=== PATIENT | male | born 1970 | race Caucasian/White ===

== ENCOUNTER 2021-10-14 15:15 | Emergency (ER) | payer OTHER, SELFPAY ==
[2021-10-14 15:15] VITALS: BP 143/102; PULSE 98; RESP 20; TEMP 36.9; O2SAT 97; BMI 28.1
--- NOTE | 2021-10-14 15:34 | EKG12_ITS ---
Test Reason : SOB Blood Pressure : / mmHG Vent. Rate : 078 BPM Atrial Rate : 078 BPM P-R Int : 116 ms QRS Dur : 096 ms QT Int : 390 ms P-R-T Axes : 082 071 060 degrees QTc Int : 444 ms Normal sinus rhythm Nonspecific ST and T wave abnormality Abnormal ECG Confirmed by JOSE ELIAS SANTIAGO, SHAMIKA ([id number]), editor dictionary OZZIE MARTINEZ ([id number]) on 10/16/2021 9:11:25 AM Referred By: DALE Confirmed By:SHAMIKA MOCTEZUMA MD
--- NOTE | 2021-10-14 15:35 | ED.VIS.DYS ---
HPI History of Present Illness Chief Complaint: Shortness of Breath Narrative Narrative: 51-year-old male presenting with dyspnea. He states that he believes he had carbon monoxide poisoning. 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 He states his eyes burn when he is in it. He states it takes a while after he is in the truck to clear his head and to be able to breathe again. He has not been in the truck since yesterday but is still feeling like he is short of breath and his lungs are burning. He is describing chest pain that feels like someone standing on his chest. He states that it sometimes hard to breathe when his episodes happen. He was given an albuterol inhaler which did seem to help open him up a little bit. He is having his check truck for carbon monoxide levels however he states it will take about a week for this to get done because all of the power is out. Patient states that he does not have any cardiac history but also admits to not going to a physician on a regular basis. He states he smokes occasionally but not a lot. He has not had fever or chills. PFSH PFSH Medical History Smoker Home Medications albuterol sulfate 90 mcg/actuation aerosol inhaler (Ventolin HFA) 1 - 2 puff inhalation Q4H PRN PRN Wheezing #6.7 grams 10/14/21 [Rx Last Taken Unknown] Allergy/AdvReac Type Severity Reaction Status Date / Time No Known Allergies Allergy Verified 10/14/21 15:44 Social History Smoking Status: Light Smoker (<10/day) ROS ROS ED Constitutional Constitutional ED: Denies chills or fever(s) Eyes Eyes: Reports other Details: Eyes burning and tearing ; Denies change in vision ENT ENT ED: Denies rhinorrhea or sore throat Cardiovascular Cardiovascular: Reports chest pain Respiratory/Chest Respiratory/Chest: Reports dyspnea and other Details: Lungs burning Gastrointestinal Gastrointestinal: Denies abdominal pain or constipation Genitourinary Genitourinary ED: Denies dysuria or hematuria Musculoskeletal Musculoskeletal: Denies arthralgias or back pain Integumentary Denies abscess or Abrasions Neurologic Neurologic: Reports headache(s); Denies paresthesias or weakness Psychiatric Psychiatric: Denies anxiety or depression EXAM Physical Exam Const Vital Signs: 10/14/21 15:15 10/14/21 15:40 10/14/21 15:46 Temperature 98.5 F Temperature Source Temporal Pulse Rate 98 78 Respiratory Rate 20 H 15 Respiratory Effort Respiratory Depth Respiratory Pattern Blood Pressure 143/102 H 134/87 H Blood Pressure Mean 115 102 Pulse Ox 97 97 96 Oxygen Delivery Method Room Air Room Air Room Air 10/14/21 15:42 10/14/21 16:04 10/14/21 17:16 Temperature Temperature Source Pulse Rate 79 77 Respiratory Rate 23 H 16 Respiratory Effort Normal Respiratory Depth Normal Respiratory Pattern Normal Tachypnea Blood Pressure 133/89 H Blood Pressure Mean Pulse Ox 99 Oxygen Delivery Method Room Air Positive well nourished General Appearance ED: Negative for pallor HEENT Reports moist mucous membranes Eyes PERRL and EOMs intact bilaterally Resp normal respiratory effort and clear to auscultation bilaterally Cardio regular rate and regular rhythm Extremity normal to inspection Neuro oriented x3 and CN's II-XII intact bilaterally Motor Exam: strength 5/5 throughout Psych mental status grossly normal Skin General Skin Exam: Negative for jaundice or pallor MDM MDM MDM Narrative Medical decision making narrative: Patient presenting with possible carbon oxide exposure however he has not been in the truck that was causing exposure and almost 24 hours. He states he is improving after having an albuterol inhaler given to him by a friend. Because he was stating he had some chest tightness yesterday I did obtain an EKG which is a normal sinus rhythm with a ventricular rate of 78 bpm without sign of ischemic change or dysrhythmia on my interpretation. CBC and BMP are unremarkable. High sensitive troponin is 4. Chest x-ray on my interpretation shows no acute cardiopulmonary process and the radiologist does agree. I did have a bedside carboxyhemoglobin checked which was 12-13 per nursing. Patient is a smoker. I do not believe this is significant he does not have any current exposure. Since his cardiac work-up is normal I think he is okay to be discharged home. Patient was given an albuterol inhale he states this is helped him. Impression: 1. Chest pain noncardiac 2. Carbon monoxide exposure 3. Dyspnea Lab Data Attestation: I reviewed the patient's lab results. Labs: Laboratory Results - last 24 hr 10/14/21 10/14/21 15:40 15:40 WBC 8.8 RBC 4.83 Hgb 15.0 Hct 44.7 MCV 92.5 MCH 31.1 MCHC 33.6 RDW Std Deviation 44.3 H RDW Coeff of Xi 13.1 Plt Count 230 MPV 10.3 Immature Gran % (Auto) 0.200 Neut % (Auto) 61.5 Lymph % (Auto) 28.8 Gilmer % (Auto) 4.5 Eos % (Auto) 4.1 Baso % (Auto) 0.9 Absolute Neuts (auto) 5.4 Absolute Lymphs (auto) 2.52 Nucleated RBC % 0 Sodium 141 Potassium 3.7 Chloride 111 H Carbon Dioxide 25.0 Anion Gap 5 BUN 14 Creatinine 1.00 Estim Creat Clear Calc 77.98 Est GFR (MDRD) Af Amer 101 Est GFR (MDRD) Non-Af 84 BUN/Creatinine Ratio 14.0 Glucose 143 H Calcium 8.9 Troponin I High Sens 4 Radiography Diagnostic Testing: Clinical Impression(s) from Imaging Studies Chest X-Ray 10/14/21 16:15 IMPRESSION: Normal x-ray examination of the chest. Electronically Signed: Richard Luna MD at 16:27 EDT , Discharge Plan Triage Chief Complaint: Shortness of Breath ED Provider: Quan Powell Dx/Rx/DC Orders Instructions: ED Chest Pain, Noncardiac, ED Carbon Monoxide Poisoning Prescriptions: New albuterol sulfate [Ventolin HFA] 90 mcg/actuation HFA aerosol inhaler 1 - 2 puff inhalation Q4H PRN PRN (Reason: Wheezing) Qty: 6.7 0RF Primary Care Provider: Care Physician,No Primary Referrals: Care Physician,No Primary [Primary Care Provider] - Disposition Disposition: Home, Self Care Discharge Date/Time: 10/14/21 17:16
[2021-10-14 15:40] VITALS: O2SAT 97
[2021-10-14 15:42] VITALS: O2SAT 97
[2021-10-14 15:46] VITALS: BP 134/87; PULSE 78; RESP 15; O2SAT 96
--- NOTE | 2021-10-14 15:50 | NURSING ---
NO OLD EKGS
[2021-10-14 15:51] LABS: Absolute Lymphocyte Count 2.52 X10^3/uL (0.83-4.51); Absolute Neutrophil Count 5.4 X10^3/uL (2.0-7.7); Basophil# 0.08 X10^3/uL; Basophil% 0.9 % (0-1); Eosinophil# 0.36 X10^3/uL; Eosinophils% 4.1 % (0-5); Hematocrit 44.7 % (40-54); Lymphocyte # 2.52 X10^3/ul (0.83-4.51); Lymphocyte % 28.8 % (19-41); Mean Corp Hgb Conc 33.6 g/dL (32-36); Mean Corpuscular Hgb 31.1 pg (27.0-32.0); Mean Corpuscular Volume 92.5 fL (80-94); Mean Platelet Vol. 10.3 fl (6.2-12.0); Monocyte# 0.39 X10^3/uL; Monocyte% 4.5 % (0-10); NRBC Flagged by Analyzer 0 % (0-5); Neutrophil # 5.38 X10^3/uL (2.7-7.7); Neutrophil % 61.5 % (47-70); Platelet Count 230 K/mm3 (150-450); RBC Distribution Width CV 13.1 % (11.6-14.6); RBC Distribution Width SD 44.3 fl (35.1-43.9); Red Blood Count 4.83 M/mm3 (4.6-6.2); White Blood Count 8.8 K/mm3 (4.4-11.0)
--- NOTE | 2021-10-14 15:54 | SUR.HOLD ---
carbon monoxide level [address] ball. daniel jara, rn [id number]
[2021-10-14] MEDS: Albuterol 2.5 MG/3 ML VIAL.NEB. INHALATION (15:57)
[2021-10-14] MEDS: Ipratropium/Albuterol Sulfate 3 ML AMPUL.NEB INHALATION (15:57)
[2021-10-14 16:04] VITALS: PULSE 79; RESP 23
[2021-10-14 16:14] LABS: Anion Gap 5 (5-15); BUN 14 mg/dL (7-18); Calcium,Total 8.9 mg/dL (8.5-10.1); Chloride 111 mmol/L (98-107); EST Glomerular Filtration Rate 84 mL/min (>60); Est Glom Filt Rate - Afr Amer 101 mL/min (>60); Estimated Creatinine Clearance 77.98 ml/min; Glucose 143 mg/dL (74-106); Potassium 3.7 mmol/L (3.5-5.1); Sodium Level 141 mmol/L (136-145); Troponin-I HS (w/2H Reflex) 4 pg/mL (3.0-78.0)
--- NOTE | 2021-10-14 16:15 | RAD_ITS ---
STUDY: X-RAY CHEST REASON FOR EXAM: Male, 51 years old. chest pain TECHNIQUE: Single AP portable view of the chest. COMPARISON: None. FINDINGS: The lungs are clear and expanded. There is no demonstrated pleural abnormality. Normal size heart. Normal mediastinum and rey. Normal visualized pulmonary arteries. Normal visualized aortic arch and descending thoracic aorta. Normal visualized thoracic spine. Normal visualized ribs, clavicles, and shoulders. There is no demonstrated abnormality of the visualized soft tissue structures of the upper abdomen. RAD/Chest 1 View (Portable) IMPRESSION: Normal x-ray examination of the chest. Electronically Signed: Richard Luna MD at 16:27 EDT ,
[2021-10-14 17:16] VITALS: BP 133/89; PULSE 77; RESP 16; O2SAT 99
[2021-10-14 17:48] LABS: Reflex Troponin-HS? (from REC) Y
== END 2021-10-14 17:16 | disposition home or self-care (01) ==
PROVIDERS: Emergency Provider Student in an Organized Health Care Education/Training Program; Visit Provider Student in an Organized Health Care Education/Training Program
DX: R07.89 Other chest pain (principal); R06.02 Shortness of breath; F17.200 Nicotine dependence, unspecified, uncomplicated; T58.94XA Toxic effect of carbon monoxide from unspecified source, undetermined, initial encounter; R06.00 Dyspnea, unspecified
CPT/HCPCS: 71045; 80048; 84484; 85025; 93005; 94640; 99284; A4216

== ENCOUNTER → 2021-11-05 | Outpatient (CLI) | payer SELFPAY ==
[2021-11-05 12:18] LABS: Carboxyhemoglobin Frac (CO) 8.3 % (0.0-1.5)
[2021-11-05 15:39] LABS: Cholesterol 188 mg/dL (200); High Density Lipoprotein 39 mg/dL; Triglycerides 98 mg/dL; Very Low Density Lipoprotein 20 mg/dL (5-40)
== END | disposition home or self-care (01) ==
PROVIDERS: PCP Internal Medicine; Referring Provider Internal Medicine; Visit Provider Internal Medicine
DX: R06.02 Shortness of breath (principal); Z77.29 Contact with and (suspected) exposure to other hazardous substances; Z13.6 Encounter for screening for cardiovascular disorders
CPT/HCPCS: 36415; 80061; 82375

== ENCOUNTER → 2021-11-11 | Outpatient (CLI) | payer SELFPAY ==
[2021-11-11 12:47] LABS: Carboxyhemoglobin Frac (CO) 7.9 % (0.0-1.5)
== END | disposition home or self-care (01) ==
PROVIDERS: PCP Internal Medicine; Referring Provider Internal Medicine; Visit Provider Internal Medicine
DX: R06.02 Shortness of breath (principal); T58.91XA Toxic effect of carbon monoxide from unspecified source, accidental (unintentional), initial encounter
CPT/HCPCS: 36415; 82375